=== PATIENT | male | born 1940 | race Caucasian/White ===

== ENCOUNTER 2017-08-07 11:37 | Inpatient (IN) ==
[~2017-08-07 11:37] MED LIST: ALBUTEROL 2.5 MG/3 ML NEB RESP TX SCH; DEXTROSE 50% 25 GM/50 ML VIAL IV PRN; GLUCAGON 1 MG VIAL IM PRN; PSYLLIUM HUSK PO PRN; ZALEPLON 5 MG CAPSULE PO PRN
[2017-08-07] MEDS: MULTIVITAMIN (CENTRUM) TABLET PO SCH (14:35)
[2017-08-07] MEDS: CHLORHEXIDINE 4% SOLN 118 ML BOTTLE TOP SCH ×3 (14:35→21:31)
[2017-08-07] MEDS: hydroCHLOROthiazide 25 MG TABLET PO SCH (14:35)
[2017-08-07] MEDS: FLUTICASONE 50 MCG NASAL SPRAY 16 GM BOTTLE BOTH NARES SCH (14:35)
[2017-08-07] MEDS: TAMSULOSIN 0.4 MG CAPSULE PO SCH (14:35)
[2017-08-07] MEDS: ASPIRIN EC 81 MG TABLET PO SCH (14:35)
[2017-08-07] MEDS: CHLORHEXIDINE 0.12% ORAL RINSE 60 ML BOTTLE SWISH/SPIT SCH ×2 (14:36→21:31)
[2017-08-07] MEDS: MELOXICAM 7.5 MG TABLET PO SCH (14:36)
[2017-08-07] MEDS: CETIRIZINE 10 MG TABLET PO SCH (14:36)
[2017-08-07 14:52] LABS: Basophils % 0.7 % (0.0-0.8); Eosinophils # 0.2 10*3/uL (0.0-0.87); Eosinophils % 3.6 % (0.00-10.9); Hematocrit 47.6 VOL% (42.0-52.0); Hemoglobin 15.9 GM/DL (14.0-18.0); Immature Granulocytes % 0.5 %; Immature Granulocytes Absolute 0.03 #; Lymphocytes # 1.2 10*3/uL (1.4-4.0); Lymphocytes % 20.8 % (21.2-54.2); Mean Corpuscular HGB Conc 33.4 GM/DL (32-36); Mean Corpuscular Hemoglobin 33 PG (27-34); Mean Corpuscular Volume 99.8 FL (87-102); Mean Platelet Volume 10.6 FL (9.6-12.0); Monocytes # 0.5 10*3/uL (0.11-0.8); Neutrophils # 3.8 10*3/uL (1.4-7.4); Neutrophils % 65.4 % (38.7-73.9); Platelet Count 152 T/CUMM (130-400); Red Blood Count 4.77 MC/CUMM (3.8-5.5); White Blood Count 5.9 T/CUMM (4-12)
[2017-08-07 15:06] LABS: Albumin 4.2 G/DL (3.4-5.0); Calcium 9.4 MG/DL (8.5-10.1); Osmolality,Calculated 286.3 MOS/KG (273-304); Potassium 4.4 MMOL/L (3.5-5.1); Total Protein 7.4 G/DL (6.4-8.3)
[2017-08-08] MEDS: SODIUM CHLORIDE 0.9% 1,000 ML IV SCH ×3 (04:56→10:50)
[2017-08-08] MEDS: CHLORHEXIDINE 4% SOLN 118 ML BOTTLE TOP SCH (05:00)
[2017-08-08] MEDS ORDERED: IPRATROPIUM 500 MCG/2.5 ML NEB RESP TX ONE (05:30)
[2017-08-08] MEDS ORDERED: DIAZEPAM 5 MG TABLET PO ONE (05:30)
[2017-08-08] MEDS ORDERED: FAMOTIDINE 20 MG TABLET PO ONE (05:30)
[2017-08-08] MEDS: ALBUTEROL 2.5 MG/3 ML NEB RESP TX SCH ×2 (05:50→10:50)
[2017-08-08] MEDS ORDERED: CEFUROXIME INJ 1,500 MG in SYRINGE 1 EACH IV ONE (06:00)
[2017-08-08 07:47] LABS: ABG Base Excess 2.5 MMOL/L (-2.5-2.5); ABG HCO3 26.6 MMOL/L (20-26); ABG PCO2 35.3 MM HG (35-48); ABG PH 7.471 (7.35-7.45); ABG TCO2 21.8 MMOL/L (23-27); Glucose Heart Surgery 108 MG/DL (74-106); Hematocrit Heart Surgery 44.8 PERCENT (42-52); Hemoglobin Heart Surgery 14.6 G/DL (14.0-18.0); PCO2 Patient Temp Arterial 35.3 MMHG; PH Patient Temp Arterial 7.471; Patient Temperature 37 CELCIUS; Potassium Heart/CVR 3.8 MMOL/L (3.5-5.1); Sodium Heart/CVR 141 MMOL/L (135-145)
[2017-08-08 08:02] LABS: Apearance,Urine CLEAR (Clear); Bilirubin,Urine Negative (Negative); Blood, Urine Negative (Negative); Glucose,Urine (UA) Negative (Negative); Ketones,Urine Negative (Negative); Mucus,Urine Occasional /LPF (Occasional); Nitrite,Urine Negative (Negative); Protein,Urine 30 MG/DL; RBC,Urine 3 /HPF (0-4); Urine Color Yellow (Yellow); Urine Specific Gravity 1.012 (1.001-1.035); Urine Urobilinogen < 2.0 EU/DL (0.2-1.0); WBC,Urine 1 /HPF (0-6)
[2017-08-08] MEDS ORDERED: ALBUMIN 5% 12.5 GM/250 ML VIAL IV ONE ×2 (08:49→14:39)
[2017-08-08] MEDS ORDERED: CALCIUM CHLORIDE 1,000 MG/10 ML SYRINGE IV ONE (08:49)
[2017-08-08] MEDS ORDERED: SODIUM BICARBONATE 50 MEQ/50 ML SYRINGE IV ONE ×2 (08:49→11:15)
[2017-08-08] MEDS ORDERED: EPINEPHrine 1 MG/10 ML SYRINGE ONE (08:49)
[2017-08-08] MEDS ORDERED: ATROPINE 1 MG/10 ML SYRINGE ONE (08:50)
[2017-08-08] MEDS ORDERED: PHENYLEPHRINE DRIP 40 MG/250 ML PREMIX IV ONE (08:50)
[2017-08-08] MEDS ORDERED: NITROPRUSSIDE 50 MG/2 ML VIAL ONE (08:51)
[2017-08-08 09:34] LABS: Hematocrit Heart Surgery 28.8 PERCENT (42-52); Hemoglobin Heart Surgery 9.3 G/DL (14.0-18.0); PH Patient Temp Venous 7.465; PO2 Patient Temp Venous 50.3 MM HG; Potassium Heart/CVR 4.4 MMOL/L (3.5-5.1); VBG Base Excess 1.1 MEQ/L (0-4); VBG HCO3 25.2 MEQ/L (24-28); VBG Oxygen Saturation 90.3 %; VBG PCO2 35.7 MMHG (41-51); VBG PH 7.45; VBG PO2 53.8 MMHG (17-40)
[2017-08-08 10:02] LABS: PCO2 Patient Temp Venous 32.6 MM HG; PH Patient Temp Venous 7.481; PO2 Patient Temp Venous 48.9 MM HG; VBG Base Excess 1.3 MEQ/L (0-4); VBG HCO3 25.4 MEQ/L (24-28); VBG PCO2 32.6 MMHG (41-51); VBG PH 7.481; VBG PO2 48.9 MMHG (17-40)
[2017-08-08 10:33] LABS: Hematocrit Heart Surgery 32.6 PERCENT (42-52); Hemoglobin Heart Surgery 10.6 G/DL (14.0-18.0); PCO2 Patient Temp Venous 31.2 MM HG; PH Patient Temp Venous 7.488; PO2 Patient Temp Venous 49.9 MM HG; Potassium Heart/CVR 3.9 MMOL/L (3.5-5.1); VBG Base Excess 0.9 MEQ/L (0-4); VBG HCO3 25.1 MEQ/L (24-28); VBG Oxygen Saturation 88.8 %; VBG PCO2 31.2 MMHG (41-51); VBG PH 7.488; VBG PO2 49.9 MMHG (17-40)
[2017-08-08] MEDS: ASPIRIN EC 81 MG TABLET PO SCH (10:51)
[2017-08-08] MEDS: TAMSULOSIN 0.4 MG CAPSULE PO SCH (10:51)
[2017-08-08] MEDS: FLUTICASONE 50 MCG NASAL SPRAY 16 GM BOTTLE BOTH NARES SCH (10:51)
[2017-08-08] MEDS: CETIRIZINE 10 MG TABLET PO SCH (10:51)
[2017-08-08] MEDS: hydroCHLOROthiazide 25 MG TABLET PO SCH (10:51)
[2017-08-08] MEDS: MELOXICAM 7.5 MG TABLET PO SCH (10:51)
[2017-08-08] MEDS: CHLORHEXIDINE 0.12% ORAL RINSE 60 ML BOTTLE SWISH/SPIT SCH ×2 (10:51→20:41)
[2017-08-08] MEDS: MULTIVITAMIN (CENTRUM) TABLET PO SCH (10:51)
[2017-08-08 11:01] LABS: ABG HCO3 23.6 MMOL/L (20-26); ABG PCO2 33.1 MM HG (35-48); ABG TCO2 20.1 MMOL/L (23-27); Glucose Heart Surgery 187 MG/DL (74-106); Hematocrit Heart Surgery 34.1 PERCENT (42-52); Hemoglobin Heart Surgery 11.1 G/DL (14.0-18.0); Ionized Calcium Arterial 1.22 MMOL/L (1.21-1.46); PCO2 Patient Temp Arterial 33.1 MMHG; Patient Temperature 37 CELCIUS; Potassium Heart/CVR 3.8 MMOL/L (3.5-5.1); Sodium Heart/CVR 135 MMOL/L (135-145)
[2017-08-08] MEDS ORDERED: THROMBIN TOPICAL (RECOMBINANT) 5,000 UNIT VIAL TOP ONE (11:03)
[2017-08-08] MEDS ORDERED: ALBUMIN 25% 25 GM/100 ML VIAL IV ONE (11:15)
[2017-08-08] MEDS ORDERED: MAGNESIUM SULFATE 1 GM/2 ML VIAL ONE (11:15)
[2017-08-08] MEDS ORDERED: DEXTROSE 5% KCL 20 MEQ 20 MEQ/1,000 ML BAG IV ONE (11:15)
[2017-08-08] MEDS ORDERED: PROTAMINE SULFATE 250 MG/25 ML VIAL IV ONE (11:15)
[2017-08-08] MEDS ORDERED: PHENYLEPHRINE 10 MG/1 ML VIAL IV ONE ×2 (11:16→12:36)
[2017-08-08] MEDS ORDERED: MANNITOL 12.5 GM/50 ML VIAL IV ONE (11:16)
[2017-08-08] MEDS ORDERED: methylPREDNISolone SOD SUC 1,000 MG/8 ML VIAL ONE (11:16)
[2017-08-08] MEDS ORDERED: HEPARIN 10,000 UNIT/10 ML VIAL ONE ×2 (11:16→12:40)
[2017-08-08] MEDS ORDERED: FUROSEMIDE 20 MG/2 ML VIAL ONE (11:16)
[2017-08-08] MEDS ORDERED: PROTAMINE SULFATE 50 MG/5 ML VIAL IV ONE ×3 (11:17→12:25)
[2017-08-08] MEDS ORDERED: POTASSIUM CHLORIDE 20 MEQ/10 ML VIAL ONE (11:17)
[2017-08-08] MEDS ORDERED: DOBUTamine 500 MG/250 ML PREMIX IV ONE ×2 (11:38→12:40)
[2017-08-08] MEDS ORDERED: AMIODARONE INJ 450 MG in DEXTROSE 5% 241 ML IV SCH (12:00)
[2017-08-08] MEDS ORDERED: AMIODARONE 150 MG/3 ML VIAL ONE ×2 (12:08→12:42)
[2017-08-08] MEDS ORDERED: SODIUM CHLORIDE 0.9% 750 ML IV ONE (12:32)
[2017-08-08] MEDS ORDERED: SODIUM CHLORIDE 0.9% 1,000 ML IV ONE (12:32)
[2017-08-08] MEDS ORDERED: LACTATED RINGERS 2,000 ML IV ONE (12:32)
[2017-08-08] MEDS ORDERED: MAGNESIUM SULF RIDER 4 GM in PREMIX 1 EACH IV PRN (12:35)
[2017-08-08] MEDS ORDERED: LACTATED RINGERS 1,000 ML IV ONE ×3 (12:35→15:00)
[2017-08-08] MEDS ORDERED: VECURONIUM 10 MG VIAL IV PRN ×2 (12:35)
[2017-08-08] MEDS ORDERED: ONDANSETRON 4 MG/2 ML VIAL IV PRN (12:35)
[2017-08-08] MEDS ORDERED: MORPHINE 10 MG/1 ML VIAL IV PRN (12:35)
[2017-08-08] MEDS ORDERED: MIDAZOLAM 2 MG/2 ML VIAL IV PRN (12:35)
[2017-08-08] MEDS ORDERED: KETOROLAC 30 MG/1 ML VIAL IV SCH (12:35)
[2017-08-08] MEDS ORDERED: CALCIUM CHLORIDE 1,000 MG/10 ML SYRINGE IV PRN (12:35)
[2017-08-08] MEDS ORDERED: MIDAZOLAM 10 MG/2 ML VIAL IV PRN (12:35)
[2017-08-08] MEDS ORDERED: PHENYLEPHRINE DRIP 40 MG/250 ML PREMIX IV PRN (12:35)
[2017-08-08] MEDS ORDERED: MAGNESIUM SULF RIDER 2 GM in PREMIX 1 EACH IV PRN (12:35)
[2017-08-08] MEDS ORDERED: INSULIN REGULAR 100 UNIT/ML IV PRN (12:35)
[2017-08-08] MEDS ORDERED: INSULIN REGULAR DRIP 100 ML IV SCH (12:35)
[2017-08-08] MEDS ORDERED: ACETAMINOPHEN 650 MG SUPP RECTAL PRN (12:35)
[2017-08-08] MEDS ORDERED: DEXTROSE 50% 25 GM/50 ML VIAL IV PRN ×2 (12:35)
[2017-08-08] MEDS ORDERED: NITROPRUSSIDE 100 MG in DEXTROSE 5% 250 ML IV PRN (12:35)
[2017-08-08] MEDS ORDERED: INSULIN REGULAR 100 UNIT/ML IV ONE (12:35)
[2017-08-08] MEDS ORDERED: POTASSIUM CHLORIDE RIDER 10 MEQ in PREMIX 1 EACH IV PRN (12:35)
[2017-08-08] MEDS ORDERED: LACTATED RINGERS 250 ML IV PRN (12:35)
[2017-08-08] MEDS ORDERED: SODIUM CHLORIDE 0.9% 500 ML IV ONE (12:35)
[2017-08-08] MEDS ORDERED: MIDAZOLAM 10 MG/2 ML VIAL ONE ×2 (12:37)
[2017-08-08] MEDS ORDERED: HEPARIN/NACL 0.9% 2 UNITS/ML 500 ML IV ONE (12:40)
[2017-08-08] MEDS ORDERED: CALCIUM CHLORIDE 1,000 MG/10 ML VIAL IV ONE (12:40)
[2017-08-08] MEDS ORDERED: SEVOFLURANE 1 UNIT/15 MINUTE INH ONE (12:40)
[2017-08-08] MEDS ORDERED: EPINEPHrine 1 MG/ML VIAL ONE (12:41)
[2017-08-08] MEDS ORDERED: ePHEDrine 50 MG/ML AMP ONE (12:41)
[2017-08-08] MEDS ORDERED: SUFentanil 250 MCG/5 ML AMP ONE (12:41)
[2017-08-08] MEDS ORDERED: TRANEXAMIC ACID 1,000 MG/10 ML VIAL IV ONE (12:42)
[2017-08-08 12:44] LABS: ABG Base Excess -3.5 MMOL/L (-2.5-2.5); ABG HCO3 21.5 MMOL/L (20-26); ABG Oxygen Saturation 98.1 % (95-100); ABG PCO2 38.4 MM HG (35-48); ABG PH 7.358 (7.35-7.45); ABG TCO2 19.3 MMOL/L (23-27); Glucose Heart Surgery 183 MG/DL (74-106); Hematocrit Heart Surgery 36.7 PERCENT (42-52); Hemoglobin Heart Surgery 11.9 G/DL (14.0-18.0); Potassium Heart/CVR 3.7 MMOL/L (3.5-5.1)
[2017-08-08 12:49] LABS: Basophils % 0.4 % (0.0-0.8); Eosinophils % 0.2 % (0.00-10.9); Hematocrit 36.3 VOL% (42.0-52.0); Immature Granulocytes % 0.5 %; Immature Granulocytes Absolute 0.05 #; Lymphocytes # 0.7 10*3/uL (1.4-4.0); Lymphocytes % 7.5 % (21.2-54.2); Mean Corpuscular HGB Conc 33.6 GM/DL (32-36); Mean Corpuscular Hemoglobin 33 PG (27-34); Mean Corpuscular Volume 99.5 FL (87-102); Mean Platelet Volume 10.6 FL (9.6-12.0); Monocytes # 0.6 10*3/uL (0.11-0.8); Monocytes % 6.5 % (1.7-12.7); Neutrophils # 8.4 10*3/uL (1.4-7.4); Neutrophils % 84.9 % (38.7-73.9)
[2017-08-08 12:50] LABS: Hemoglobin 12.2 GM/DL (14.0-18.0); Platelet Count 114 T/CUMM (130-400); Red Blood Count 3.65 MC/CUMM (3.8-5.5); White Blood Count 9.9 T/CUMM (4-12)
[2017-08-08 12:53] LABS: INR 1.4; PT Patient Result 14.9 SECS; Partial Thromboplastin Time 33.5 SECS (0-40)
[2017-08-08] MEDS: ALBUMIN 5% 12.5 GM in PREMIX 1 EACH IV PRN ×5 (13:00→21:52)
[2017-08-08 13:22] LABS: Albumin 3.3 G/DL (3.4-5.0); Bilirubin,Total 1.1 MG/DL (0.2-1.0); Osmolality,Calculated 285.4 MOS/KG (273-304); Potassium 3.8 MMOL/L (3.5-5.1); Total Protein 5.7 G/DL (6.4-8.3)
[2017-08-08 13:25] LABS: CKMB % 5.8 %
[2017-08-08 13:26] LABS: Troponin I Only 2.24 NG/ML (0.00-0.045)
[2017-08-08] MEDS: POTASSIUM CHLORIDE RIDER 20 MEQ in PREMIX 1 EACH IV PRN (14:45)
[2017-08-08 15:00] LABS: ABG Base Excess -1.9 MMOL/L (-2.5-2.5); ABG HCO3 21.9 MMOL/L (20-26); ABG Oxygen Saturation 98.6 % (95-100); ABG PH 7.426 (7.35-7.45); ABG TCO2 22.9 MMOL/L (23-27); Glucose Heart Surgery 205 MG/DL (74-106); Hemoglobin Heart Surgery 11.6 G/DL (14.0-18.0)
[2017-08-08] MEDS: DOBUTamine 500 MG/250 ML PREMIX IV SCH (15:10)
[2017-08-08] MEDS: SODIUM CHLORIDE 0.45% 1,000 ML IV SCH ×2 (15:11→15:12)
[2017-08-08 17:05] LABS: Band Neutrophils 4 % (0-10); Lymphocytes 7 % (20-55); Platelet Estimate Adequate; Segmented Neutrophils 86 % (50-85); Total Cells Counted 100
[2017-08-08 17:21] LABS: ABG Base Excess -3.4 MMOL/L (-2.5-2.5); ABG HCO3 21.6 MMOL/L (20-26); ABG Oxygen Saturation 98.5 % (95-100); ABG PCO2 41.6 MM HG (35-48); ABG PH 7.336 (7.35-7.45); ABG TCO2 20.3 MMOL/L (23-27); Glucose Heart Surgery 199 MG/DL (74-106); Hematocrit Heart Surgery 31.3 PERCENT (42-52); Hemoglobin Heart Surgery 10.1 G/DL (14.0-18.0); Potassium Heart/CVR 4.4 MMOL/L (3.5-5.1)
[2017-08-08] MEDS: MORPHINE 2 MG/1 ML SYRINGE IV PRN ×2 (18:26→19:57)
[2017-08-08 19:20] LABS: ABG Base Excess -2.6 MMOL/L (-2.5-2.5); ABG HCO3 22.2 MMOL/L (20-26); ABG Oxygen Saturation 98.9 % (95-100); ABG PCO2 40.8 MM HG (35-48); ABG PH 7.354 (7.35-7.45); ABG TCO2 20.7 MMOL/L (23-27); Glucose Heart Surgery 176 MG/DL (74-106); Hematocrit Heart Surgery 32.2 PERCENT (42-52); Hemoglobin Heart Surgery 10.4 G/DL (14.0-18.0); Potassium Heart/CVR 4.2 MMOL/L (3.5-5.1)
[2017-08-08] MEDS: AMIODARONE INJ 450 MG in DEXTROSE 5% 241 ML IV SCH (20:30)
[2017-08-08] MEDS: CEFUROXIME INJ 1,500 MG in SYRINGE 1 EACH IV SCH (20:37)
[2017-08-08 21:13] LABS: Troponin I Only 15.3 NG/ML (0.00-0.045)
[2017-08-08 21:13] LABS: ABG Base Excess -1.4 MMOL/L (-2.5-2.5); ABG HCO3 23.3 MMOL/L (20-26); ABG Oxygen Saturation 97.3 % (95-100); ABG PH 7.394 (7.35-7.45); ABG PO2 107.6 MM HG (80-95); ABG TCO2 24.5 MMOL/L (23-27); Glucose Heart Surgery 148 MG/DL (74-106); Hemoglobin Heart Surgery 10.1 G/DL (14.0-18.0); Potassium Heart/CVR 4.1 MMOL/L (3.5-5.1)
[2017-08-08 22:11] LABS: ABG Base Excess -0.9 MMOL/L (-2.5-2.5); ABG HCO3 23.7 MMOL/L (20-26); ABG Oxygen Saturation 97.4 % (95-100); ABG PCO2 43.5 MM HG (35-48); ABG PH 7.361 (7.35-7.45); ABG PO2 90.6 MM HG (80-95); ABG TCO2 22.7 MMOL/L (23-27); Glucose Heart Surgery 157 MG/DL (74-106); Hematocrit Heart Surgery 28.7 PERCENT (42-52); Hemoglobin Heart Surgery 9.3 G/DL (14.0-18.0); Potassium Heart/CVR 4.2 MMOL/L (3.5-5.1)
[2017-08-09 00:07] LABS: ABG Base Excess -1.4 MMOL/L (-2.5-2.5); ABG HCO3 23.2 MMOL/L (20-26); ABG Oxygen Saturation 95.5 % (95-100); ABG PCO2 38.7 MM HG (35-48); ABG PH 7.396 (7.35-7.45); ABG PO2 82.5 MM HG (80-95); ABG TCO2 24.4 MMOL/L (23-27); Glucose Heart Surgery 148 MG/DL (74-106); Hemoglobin Heart Surgery 10.7 G/DL (14.0-18.0); Potassium Heart/CVR 4.2 MMOL/L (3.5-5.1)
[2017-08-09] MEDS: POTASSIUM CHLORIDE RIDER 20 MEQ in PREMIX 1 EACH IV PRN ×2 (00:23→05:23)
[2017-08-09] MEDS: MORPHINE 2 MG/1 ML SYRINGE IV PRN ×3 (03:08→22:39)
[2017-08-09 04:10] LABS: ABG Base Excess -0.4 MMOL/L (-2.5-2.5); ABG Oxygen Saturation 95.4 % (95-100); ABG PCO2 39.6 MM HG (35-48); ABG PH 7.396 (7.35-7.45); ABG PO2 73.5 MM HG (80-95); ABG TCO2 22.1 MMOL/L (23-27); Glucose Heart Surgery 120 MG/DL (74-106); Hematocrit Heart Surgery 31.1 PERCENT (42-52); Hemoglobin Heart Surgery 10.1 G/DL (14.0-18.0); Potassium Heart/CVR 4.2 MMOL/L (3.5-5.1)
[2017-08-09 04:37] LABS: Basophils % 0.1 % (0.0-0.8); Hematocrit 29.3 VOL% (42.0-52.0); Hemoglobin 9.8 GM/DL (14.0-18.0); Immature Granulocytes % 0.4 %; Immature Granulocytes Absolute 0.05 #; Lymphocytes # 0.6 10*3/uL (1.4-4.0); Lymphocytes % 5.1 % (21.2-54.2); Mean Corpuscular HGB Conc 33.4 GM/DL (32-36); Mean Corpuscular Hemoglobin 33 PG (27-34); Mean Corpuscular Volume 98.7 FL (87-102); Monocytes # 0.7 10*3/uL (0.11-0.8); Neutrophils # 10.3 10*3/uL (1.4-7.4); Neutrophils % 88.4 % (38.7-73.9); Platelet Count 83 T/CUMM (130-400); Red Blood Count 2.97 MC/CUMM (3.8-5.5); Red Cell Distribution Width 13.2 % (9.3-17.3); White Blood Count 11.7 T/CUMM (4-12)
[2017-08-09 04:41] LABS: Albumin 3.9 G/DL (3.4-5.0); Bilirubin,Direct 0.25 MG/DL (0.0-0.20); Bilirubin,Total 0.8 MG/DL (0.2-1.0); Calcium 8.5 MG/DL (8.5-10.1); Osmolality,Calculated 278.7 MOS/KG (273-304); Potassium 4.2 MMOL/L (3.5-5.1); Total Protein 5.8 G/DL (6.4-8.3)
[2017-08-09] MEDS: ALBUMIN 5% 12.5 GM in PREMIX 1 EACH IV PRN (05:08)
[2017-08-09 05:25] LABS: Band Neutrophils 7 % (0-10); Giant Platelets Few; Hypochromasia 1+; Lymphocytes 5 % (20-55); Platelet Estimate Decreased; Segmented Neutrophils 79 % (50-85); Total Cells Counted 100
[2017-08-09] MEDS ORDERED: FUROSEMIDE 40 MG/4 ML VIAL IV ONE ×2 (05:30→08:00)
[2017-08-09 05:31] LABS: CKMB % 7.7 %
[2017-08-09 05:41] LABS: Troponin I Only 28.3 NG/ML (0.00-0.045)
[2017-08-09 06:06] LABS: ABG Base Excess 0.8 MMOL/L (-2.5-2.5); ABG HCO3 25.1 MMOL/L (20-26); ABG Oxygen Saturation 94.4 % (95-100); ABG PCO2 38.9 MM HG (35-48); ABG PH 7.428 (7.35-7.45); ABG PO2 75.3 MM HG (80-95); ABG TCO2 26.3 MMOL/L (23-27); Glucose Heart Surgery 118 MG/DL (74-106); Hemoglobin Heart Surgery 11.1 G/DL (14.0-18.0); Potassium Heart/CVR 4.8 MMOL/L (3.5-5.1)
[2017-08-09] MEDS ORDERED: oxyCODONE/ACETAMINOPHEN 5-325 MG TABLET PO PRN (06:24)
[2017-08-09] MEDS: CEFUROXIME INJ 1,500 MG in SYRINGE 1 EACH IV SCH ×2 (08:15→20:26)
[2017-08-09] MEDS: CHLORHEXIDINE 0.12% ORAL RINSE 60 ML BOTTLE SWISH/SPIT SCH ×2 (10:41→20:25)
[2017-08-09 13:29] LABS: CKMB % 6.3 %
[2017-08-09 13:33] LABS: Troponin I Only 35.3 NG/ML (0.00-0.045)
[2017-08-09] MEDS: AMIODARONE 200 MG TABLET PO SCH (14:20)
[2017-08-09] MEDS: INSULIN REGULAR 100 UNIT/ML SUBCUT SCH ×3 (14:37→20:25)
[2017-08-09] MEDS: AMIODARONE INJ 450 MG in DEXTROSE 5% 241 ML IV SCH (15:14)
[2017-08-09] MEDS: DOBUTamine 500 MG/250 ML PREMIX IV SCH (15:14)
[2017-08-09] MEDS: SODIUM CHLORIDE 0.45% 1,000 ML IV SCH ×2 (15:18)
[2017-08-09] MEDS ORDERED: ALUMINUM/MAGNES/SIMETH MAX STR 30 ML UDCUP PO PRN (18:41)
[2017-08-09] MEDS: PANTOPRAZOLE 40 MG TABLET PO SCH (20:24)
[2017-08-09] MEDS: MONTELUKAST 10 MG TABLET PO SCH (20:24)
[2017-08-10] MEDS: INSULIN REGULAR 100 UNIT/ML SUBCUT SCH ×3 (00:38→07:43)
[2017-08-10 04:16] LABS: Basophils % 0.1 % (0.0-0.8); Hematocrit 28.7 VOL% (42.0-52.0); Hemoglobin 9.6 GM/DL (14.0-18.0); Immature Granulocytes % 0.8 %; Immature Granulocytes Absolute 0.13 #; Lymphocytes # 0.5 10*3/uL (1.4-4.0); Lymphocytes % 3.1 % (21.2-54.2); Mean Corpuscular HGB Conc 33.4 GM/DL (32-36); Mean Corpuscular Hemoglobin 34 PG (27-34); Mean Corpuscular Volume 100.3 FL (87-102); Mean Platelet Volume 11.6 FL (9.6-12.0); Monocytes # 1.2 10*3/uL (0.11-0.8); Monocytes % 7.2 % (1.7-12.7); Neutrophils # 15.2 10*3/uL (1.4-7.4); Neutrophils % 88.8 % (38.7-73.9); Platelet Count 75 T/CUMM (130-400); Red Blood Count 2.86 MC/CUMM (3.8-5.5); Red Cell Distribution Width 13.5 % (9.3-17.3); White Blood Count 17.2 T/CUMM (4-12)
[2017-08-10 04:37] LABS: Albumin 3.7 G/DL (3.4-5.0); Bilirubin,Direct 0.19 MG/DL (0.0-0.20); Bilirubin,Total 0.7 MG/DL (0.2-1.0); Osmolality,Calculated 292.3 MOS/KG (273-304); Potassium 4.2 MMOL/L (3.5-5.1); Total Protein 5.8 G/DL (6.4-8.3)
[2017-08-10 04:49] LABS: CKMB % 2.6 %
[2017-08-10] MEDS: AMIODARONE INJ 450 MG in DEXTROSE 5% 241 ML IV SCH (04:49)
[2017-08-10 04:59] LABS: Troponin I Only 30.3 NG/ML (0.00-0.045)
[2017-08-10 06:08] LABS: Band Neutrophils 5 % (0-10); Lymphocytes 2 % (20-55); Segmented Neutrophils 87 % (50-85); Total Cells Counted 100
[2017-08-10 06:09] LABS: Hypochromasia 1+; Platelet Estimate Decreased
[2017-08-10] MEDS: AMIODARONE 200 MG TABLET PO SCH ×2 (08:36→21:31)
[2017-08-10] MEDS: PANTOPRAZOLE 40 MG TABLET PO SCH ×2 (08:36→12:16)
[2017-08-10] MEDS: CHLORHEXIDINE 0.12% ORAL RINSE 60 ML BOTTLE SWISH/SPIT SCH ×3 (08:39→21:31)
[2017-08-10] MEDS: MULTIVITAMIN (CENTRUM) TABLET PO SCH (10:58)
[2017-08-10] MEDS: hydroCHLOROthiazide 25 MG TABLET PO SCH (10:58)
[2017-08-10] MEDS: ASPIRIN EC 81 MG TABLET PO SCH (10:58)
[2017-08-10] MEDS: CETIRIZINE 10 MG TABLET PO SCH (10:58)
[2017-08-10] MEDS: FLUTICASONE 50 MCG NASAL SPRAY 16 GM BOTTLE BOTH NARES SCH (10:59)
[2017-08-10] MEDS: TAMSULOSIN 0.4 MG CAPSULE PO SCH (10:59)
[2017-08-10] MEDS ORDERED: ALUMINUM/MAGNES/SIMETH MAX STR 30 ML UDCUP PO PRN (11:33)
[2017-08-10] MEDS ORDERED: DEXTROSE 50% 25 GM/50 ML VIAL IV PRN ×2 (11:33)
[2017-08-10] MEDS ORDERED: GLUCAGON 1 MG VIAL IM PRN ×2 (11:33)
[2017-08-10] MEDS ORDERED: ZALEPLON 5 MG CAPSULE PO PRN (11:33)
[2017-08-10] MEDS ORDERED: POTASSIUM CHLORIDE 20 MEQ TABLET PO PRN (11:33)
[2017-08-10] MEDS ORDERED: MAGNESIUM SULF RIDER 4 GM in PREMIX 1 EACH IV PRN (11:33)
[2017-08-10] MEDS ORDERED: ONDANSETRON 4 MG/2 ML VIAL IV PRN (11:33)
[2017-08-10] MEDS ORDERED: oxyCODONE/ACETAMINOPHEN 5-325 MG TABLET PO PRN (11:33)
[2017-08-10] MEDS ORDERED: MAGNESIUM SULF RIDER 2 GM in PREMIX 1 EACH IV PRN (11:33)
[2017-08-10] MEDS ORDERED: SODIUM CHLOR 0.45% KCL 20 MEQ 20 MEQ/1,000 ML BAG IV SCH (11:33)
[2017-08-10] MEDS: DOCUSATE SODIUM 100 MG CAPSULE PO SCH (12:15)
[2017-08-10] MEDS: FERROUS SULFATE 325 MG TABLET PO SCH (12:15)
[2017-08-10] MEDS: PHENYLEPHRINE PO SCH (15:54)
[2017-08-10] MEDS: CHLORPHENIRAMINE PO SCH (15:54)
[2017-08-10] MEDS: ATORVASTATIN 40 MG TABLET PO SCH (21:31)
[2017-08-10] MEDS: MONTELUKAST 10 MG TABLET PO SCH (21:31)
[2017-08-11] MEDS ORDERED: FUROSEMIDE 40 MG/4 ML VIAL IV ONE (06:00)
[2017-08-11 06:06] LABS: Basophils % 0.1 % (0.0-0.8); Hematocrit 29.5 VOL% (42.0-52.0); Hemoglobin 9.9 GM/DL (14.0-18.0); Immature Granulocytes % 0.8 %; Immature Granulocytes Absolute 0.13 #; Lymphocytes # 0.8 10*3/uL (1.4-4.0); Lymphocytes % 4.8 % (21.2-54.2); Mean Corpuscular HGB Conc 33.6 GM/DL (32-36); Mean Corpuscular Hemoglobin 33 PG (27-34); Mean Corpuscular Volume 99.3 FL (87-102); Mean Platelet Volume 11.8 FL (9.6-12.0); Monocytes # 1.6 10*3/uL (0.11-0.8); Monocytes % 9.7 % (1.7-12.7); Neutrophils # 14.2 10*3/uL (1.4-7.4); Neutrophils % 84.6 % (38.7-73.9); Platelet Count 90 T/CUMM (130-400); Red Blood Count 2.97 MC/CUMM (3.8-5.5); Red Cell Distribution Width 13.1 % (9.3-17.3); White Blood Count 16.8 T/CUMM (4-12)
[2017-08-11 06:26] LABS: Albumin 3.7 G/DL (3.4-5.0); Bilirubin,Direct 0.23 MG/DL (0.0-0.20); Bilirubin,Indirect 0.9 MG/DL (0.0-1.0); Bilirubin,Total 1.1 MG/DL (0.2-1.0); CKMB % 1.2 %; Calcium 8.3 MG/DL (8.5-10.1); Osmolality,Calculated 292.3 MOS/KG (273-304); Potassium 4.3 MMOL/L (3.5-5.1); Total Protein 5.9 G/DL (6.4-8.3)
[2017-08-11 06:27] LABS: Troponin I Only 16.8 NG/ML (0.00-0.045)
[2017-08-11 06:55] LABS: Band Neutrophils 4 % (0-10); Lymphocytes 20 % (20-55); Platelet Estimate Decreased; Segmented Neutrophils 73 % (50-85); Total Cells Counted 100
[2017-08-11 06:56] LABS: Macrocytosis 3+
[2017-08-11] MEDS: FERROUS SULFATE 325 MG TABLET PO SCH (09:15)
[2017-08-11] MEDS: MULTIVITAMIN (CENTRUM) TABLET PO SCH (09:15)
[2017-08-11] MEDS: DOCUSATE SODIUM 100 MG CAPSULE PO SCH (09:16)
[2017-08-11] MEDS: TAMSULOSIN 0.4 MG CAPSULE PO SCH (09:16)
[2017-08-11] MEDS: CETIRIZINE 10 MG TABLET PO SCH (09:16)
[2017-08-11] MEDS: PANTOPRAZOLE 40 MG TABLET PO SCH (09:16)
[2017-08-11] MEDS: ASPIRIN EC 81 MG TABLET PO SCH (09:16)
[2017-08-11] MEDS: AMIODARONE 200 MG TABLET PO SCH ×2 (09:17→21:12)
[2017-08-11] MEDS: CHLORHEXIDINE 0.12% ORAL RINSE 60 ML BOTTLE SWISH/SPIT SCH ×2 (09:20→21:12)
[2017-08-11] MEDS: FLUTICASONE 50 MCG NASAL SPRAY 16 GM BOTTLE BOTH NARES SCH (09:20)
[2017-08-11] MEDS: hydroCHLOROthiazide 25 MG TABLET PO SCH (09:21)
[2017-08-11] MEDS: CHLORPHENIRAMINE PO SCH (11:52)
[2017-08-11] MEDS: PHENYLEPHRINE PO SCH (11:52)
[2017-08-11] MEDS ORDERED: FUROSEMIDE 40 MG TABLET PO SCH (16:00)
[2017-08-11] MEDS: MONTELUKAST 10 MG TABLET PO SCH (21:12)
[2017-08-11] MEDS: ATORVASTATIN 40 MG TABLET PO SCH (21:12)
[2017-08-12 06:09] LABS: Basophils % 0.1 % (0.0-0.8); Eosinophils % 0.1 % (0.00-10.9); Hematocrit 32.2 VOL% (42.0-52.0); Hemoglobin 10.7 GM/DL (14.0-18.0); Immature Granulocytes % 0.9 %; Immature Granulocytes Absolute 0.12 #; Mean Corpuscular HGB Conc 33.2 GM/DL (32-36); Mean Corpuscular Hemoglobin 33 PG (27-34); Mean Corpuscular Volume 99.7 FL (87-102); Mean Platelet Volume 11.5 FL (9.6-12.0); Monocytes # 1.5 10*3/uL (0.11-0.8); Monocytes % 10.8 % (1.7-12.7); Neutrophils # 10.3 10*3/uL (1.4-7.4); Neutrophils % 74.1 % (38.7-73.9); Platelet Count 124 T/CUMM (130-400); Red Blood Count 3.23 MC/CUMM (3.8-5.5); White Blood Count 13.9 T/CUMM (4-12)
[2017-08-12 06:59] LABS: Giant Platelets Few; Hypochromasia 1+; Lymphocytes 16 % (20-55); Platelet Estimate Normal; Segmented Neutrophils 74 % (50-85); Total Cells Counted 100
[2017-08-12 07:06] LABS: Potassium 4.1 MMOL/L (3.5-5.1)
[2017-08-12 07:09] LABS: Albumin 3.5 G/DL (3.4-5.0)
[2017-08-12 07:16] LABS: Osmolality,Calculated 288.5 MOS/KG (273-304)
[2017-08-12 07:20] LABS: Bilirubin,Direct 0.27 MG/DL (0.0-0.20); Bilirubin,Indirect 0.7 MG/DL (0.0-1.0)
[2017-08-12 07:21] LABS: Total Protein 6.2 G/DL (6.4-8.3)
[2017-08-12 07:41] LABS: CKMB % 1.1 %; Troponin I Only 15.9 NG/ML (0.00-0.045)
[2017-08-12] MEDS: AMIODARONE 200 MG TABLET PO SCH (09:10)
[2017-08-12] MEDS: PANTOPRAZOLE 40 MG TABLET PO SCH (09:10)
[2017-08-12] MEDS: CHLORPHENIRAMINE PO SCH (09:10)
[2017-08-12] MEDS: ASPIRIN EC 81 MG TABLET PO SCH (09:10)
[2017-08-12] MEDS: TAMSULOSIN 0.4 MG CAPSULE PO SCH (09:10)
[2017-08-12] MEDS: MULTIVITAMIN (CENTRUM) TABLET PO SCH (09:10)
[2017-08-12] MEDS: PHENYLEPHRINE PO SCH (09:10)
[2017-08-12] MEDS: DOCUSATE SODIUM 100 MG CAPSULE PO SCH (09:10)
[2017-08-12] MEDS: FERROUS SULFATE 325 MG TABLET PO SCH (09:10)
[2017-08-12] MEDS: CETIRIZINE 10 MG TABLET PO SCH (09:10)
[2017-08-12] MEDS: hydroCHLOROthiazide 25 MG TABLET PO SCH (09:10)
[2017-08-12] MEDS: CHLORHEXIDINE 0.12% ORAL RINSE 60 ML BOTTLE SWISH/SPIT SCH ×2 (09:11→21:41)
[2017-08-12] MEDS: FLUTICASONE 50 MCG NASAL SPRAY 16 GM BOTTLE BOTH NARES SCH (09:11)
[2017-08-12] MEDS ORDERED: FUROSEMIDE 40 MG/4 ML VIAL IV ONE (09:54)
[2017-08-12] MEDS: METOPROLOL SUCCINATE XL 25 MG TABLET PO SCH (10:49)
[2017-08-12] MEDS: ALBUTEROL/IPRATROPIUM 3 ML NEB RESP TX SCH ×3 (11:04→21:06)
[2017-08-12 15:48] LABS: ABG Base Excess 4.3 MMOL/L (-2.5-2.5); ABG HCO3 28.1 MMOL/L (20-26); ABG Oxygen Saturation 91.3 % (95-100); ABG PCO2 38.6 MM HG (35-48); ABG TCO2 25.1 MMOL/L (23-27); Allen Test Positive
[2017-08-12] MEDS: PIPERACILLIN/TAZOBACTAM 3,375 MG in SODIUM CHLORIDE 0.9% 100 ML IV SCH (17:45)
[2017-08-12] MEDS: methylPREDNISolone SOD SUC 40 MG/1 ML VIAL IV SCH (17:45)
[2017-08-12] MEDS: ATORVASTATIN 40 MG TABLET PO SCH (21:41)
[2017-08-12] MEDS: MONTELUKAST 10 MG TABLET PO SCH (21:41)
[2017-08-13] MEDS: methylPREDNISolone SOD SUC 40 MG/1 ML VIAL IV SCH ×2 (00:50→09:02)
[2017-08-13] MEDS: PIPERACILLIN/TAZOBACTAM 3,375 MG in SODIUM CHLORIDE 0.9% 100 ML IV SCH ×3 (00:51→17:05)
[2017-08-13 04:51] LABS: Basophils % 0.1 % (0.0-0.8); Hemoglobin 11.1 GM/DL (14.0-18.0); Immature Granulocytes % 0.9 %; Immature Granulocytes Absolute 0.08 #; Lymphocytes # 0.6 10*3/uL (1.4-4.0); Lymphocytes % 6.5 % (21.2-54.2); Mean Corpuscular HGB Conc 34.7 GM/DL (32-36); Mean Corpuscular Hemoglobin 34 PG (27-34); Mean Corpuscular Volume 96.7 FL (87-102); Mean Platelet Volume 10.8 FL (9.6-12.0); Monocytes # 0.1 10*3/uL (0.11-0.8); Monocytes % 1.3 % (1.7-12.7); Neutrophils # 8.1 10*3/uL (1.4-7.4); Neutrophils % 91.2 % (38.7-73.9); Platelet Count 173 T/CUMM (130-400); Red Blood Count 3.31 MC/CUMM (3.8-5.5); Red Cell Distribution Width 12.8 % (9.3-17.3); White Blood Count 8.9 T/CUMM (4-12)
[2017-08-13 05:10] LABS: Calcium 8.6 MG/DL (8.5-10.1); Osmolality,Calculated 300.4 MOS/KG (273-304); Potassium 4.4 MMOL/L (3.5-5.1)
[2017-08-13 05:29] LABS: Lymphocytes 9 % (20-55); Segmented Neutrophils 90 % (50-85); Total Cells Counted 100
[2017-08-13 05:30] LABS: Platelet Estimate Adequate
[2017-08-13 05:34] LABS: Polychromasia Few
[2017-08-13 05:35] LABS: Hypochromasia 1+
[2017-08-13] MEDS: ALBUTEROL/IPRATROPIUM 3 ML NEB RESP TX SCH ×4 (07:45→19:12)
[2017-08-13] MEDS: MULTIVITAMIN (CENTRUM) TABLET PO SCH (09:06)
[2017-08-13] MEDS: METOPROLOL SUCCINATE XL 25 MG TABLET PO SCH (09:06)
[2017-08-13] MEDS: CHLORPHENIRAMINE PO SCH (09:06)
[2017-08-13] MEDS: DOCUSATE SODIUM 100 MG CAPSULE PO SCH (09:06)
[2017-08-13] MEDS: CHLORHEXIDINE 0.12% ORAL RINSE 60 ML BOTTLE SWISH/SPIT SCH ×2 (09:06→22:04)
[2017-08-13] MEDS: CETIRIZINE 10 MG TABLET PO SCH (09:06)
[2017-08-13] MEDS: PHENYLEPHRINE PO SCH (09:06)
[2017-08-13] MEDS: TAMSULOSIN 0.4 MG CAPSULE PO SCH (09:06)
[2017-08-13] MEDS: ASPIRIN EC 81 MG TABLET PO SCH (09:06)
[2017-08-13] MEDS: FERROUS SULFATE 325 MG TABLET PO SCH (09:06)
[2017-08-13] MEDS: PANTOPRAZOLE 40 MG TABLET PO SCH (09:06)
[2017-08-13] MEDS: FLUTICASONE 50 MCG NASAL SPRAY 16 GM BOTTLE BOTH NARES SCH (09:07)
[2017-08-13] MEDS: methylPREDNISolone SOD SUC 125 MG/2 ML VIAL IV SCH ×2 (10:04→22:03)
[2017-08-13] MEDS: ACETAMINOPHEN 325 MG TABLET PO PRN ×2 (11:44→22:35)
[2017-08-13] MEDS: MAGNESIUM HYDROXIDE SUSP 30 ML UDCUP PO PRN (13:03)
[2017-08-13] MEDS: ATORVASTATIN 40 MG TABLET PO SCH (22:04)
[2017-08-13] MEDS: MONTELUKAST 10 MG TABLET PO SCH (22:04)
[2017-08-14] MEDS: PIPERACILLIN/TAZOBACTAM 3,375 MG in SODIUM CHLORIDE 0.9% 100 ML IV SCH ×3 (01:19→18:12)
[2017-08-14 05:00] LABS: Basophils % 0.1 % (0.0-0.8); Hematocrit 29.8 VOL% (42.0-52.0); Hemoglobin 10.1 GM/DL (14.0-18.0); Immature Granulocytes % 1.3 %; Immature Granulocytes Absolute 0.19 #; Lymphocytes # 0.9 10*3/uL (1.4-4.0); Lymphocytes % 6.1 % (21.2-54.2); Mean Corpuscular HGB Conc 33.9 GM/DL (32-36); Mean Corpuscular Hemoglobin 34 PG (27-34); Monocytes # 0.7 10*3/uL (0.11-0.8); Monocytes % 5.1 % (1.7-12.7); NRBC # 0.02 10*3/uL; Neutrophils # 12.6 10*3/uL (1.4-7.4); Neutrophils % 87.4 % (38.7-73.9); Platelet Count 203 T/CUMM (130-400); Red Blood Count 3.01 MC/CUMM (3.8-5.5); Red Cell Distribution Width 12.7 % (9.3-17.3); White Blood Count 14.4 T/CUMM (4-12)
[2017-08-14 05:27] LABS: Macrocytosis Slight
[2017-08-14 05:29] LABS: Platelet Estimate Normal
[2017-08-14 05:54] LABS: Alanine Aminotransferase 46 U/L (16-61); Albumin 3.2 G/DL (3.4-5.0); Alkaline Phosphatase 51 U/L (45-117); Aspartate Amino Transferase 33 U/L (0-37); Bilirubin,Indirect 0.8 MG/DL (0.0-1.0); Blood Urea Nitrogen 78 MG/DL (7-18); Calcium 8.8 MG/DL (8.5-10.1); Glucose 155 MG/DL (74-106); Osmolality,Calculated 304.4 MOS/KG (273-304); Potassium 3.8 MMOL/L (3.5-5.1); Sodium 140 MMOL/L (136-145); Total Protein 5.9 G/DL (6.4-8.3)
[2017-08-14] MEDS: ALBUTEROL/IPRATROPIUM 3 ML NEB RESP TX SCH ×4 (07:05→20:51)
[2017-08-14] MEDS: CETIRIZINE 10 MG TABLET PO SCH (08:47)
[2017-08-14] MEDS: PANTOPRAZOLE 40 MG TABLET PO SCH (08:47)
[2017-08-14] MEDS: DOCUSATE SODIUM 100 MG CAPSULE PO SCH (08:47)
[2017-08-14] MEDS: MULTIVITAMIN (CENTRUM) TABLET PO SCH (08:48)
[2017-08-14] MEDS: FERROUS SULFATE 325 MG TABLET PO SCH (08:48)
[2017-08-14] MEDS: METOPROLOL SUCCINATE XL 25 MG TABLET PO SCH (08:48)
[2017-08-14] MEDS: ASPIRIN EC 81 MG TABLET PO SCH (08:48)
[2017-08-14] MEDS: TAMSULOSIN 0.4 MG CAPSULE PO SCH (08:49)
[2017-08-14] MEDS: FLUTICASONE 50 MCG NASAL SPRAY 16 GM BOTTLE BOTH NARES SCH (08:49)
[2017-08-14] MEDS: CHLORHEXIDINE 0.12% ORAL RINSE 60 ML BOTTLE SWISH/SPIT SCH ×2 (08:49→21:59)
[2017-08-14] MEDS ORDERED: SODIUM PHOSPHATE ENEMA 133 ML BOTTLE RECTAL PRN (08:57)
[2017-08-14] MEDS ORDERED: AMIODARONE 200 MG TABLET PO SCH (09:00)
[2017-08-14] MEDS: methylPREDNISolone SOD SUC 125 MG/2 ML VIAL IV SCH ×2 (09:49→21:58)
[2017-08-14] MEDS: PHENYLEPHRINE PO SCH (09:50)
[2017-08-14] MEDS: CHLORPHENIRAMINE PO SCH (09:50)
[2017-08-14] MEDS: DORNASE ALFA 2.5 MG/2.5 ML VIAL RESP TX SCH (20:51)
[2017-08-14] MEDS ORDERED: POTASSIUM IODIDE ORAL SOLN 1,000 MG/ML BOTTLE PO SCH (21:00)
[2017-08-14] MEDS: ATORVASTATIN 40 MG TABLET PO SCH (21:59)
[2017-08-14] MEDS: MONTELUKAST 10 MG TABLET PO SCH (21:59)
[2017-08-14] MEDS: ACETAMINOPHEN 325 MG TABLET PO PRN (22:00)
[2017-08-15] MEDS: PIPERACILLIN/TAZOBACTAM 3,375 MG in SODIUM CHLORIDE 0.9% 100 ML IV SCH ×3 (04:00→16:44)
[2017-08-15 07:02] LABS: Basophils % 0.2 % (0.0-0.8); Hematocrit 30.5 VOL% (42.0-52.0); Hemoglobin 10.1 GM/DL (14.0-18.0); Immature Granulocytes Absolute 0.55 #; Lymphocytes # 0.8 10*3/uL (1.4-4.0); Lymphocytes % 4.4 % (21.2-54.2); Mean Corpuscular HGB Conc 33.1 GM/DL (32-36); Mean Corpuscular Hemoglobin 33 PG (27-34); Monocytes # 0.7 10*3/uL (0.11-0.8); Monocytes % 3.8 % (1.7-12.7); Neutrophils # 16.4 10*3/uL (1.4-7.4); Neutrophils % 88.6 % (38.7-73.9); Platelet Count 235 T/CUMM (130-400); Red Blood Count 3.05 MC/CUMM (3.8-5.5); Red Cell Distribution Width 13.1 % (9.3-17.3); White Blood Count 18.5 T/CUMM (4-12)
[2017-08-15 07:21] LABS: Giant Platelets Few; Hypochromasia 1+; Lymphocytes 7 % (20-55); Ovalocytes Slight; Platelet Estimate Adequate; Segmented Neutrophils 90 % (50-85); Total Cells Counted 100
[2017-08-15 07:22] LABS: Macrocytosis Slight
[2017-08-15 07:47] LABS: Alanine Aminotransferase 53 U/L (16-61); Albumin 3.4 G/DL (3.4-5.0); Alkaline Phosphatase 51 U/L (45-117); Aspartate Amino Transferase 29 U/L (0-37); Bilirubin,Indirect 0.4 MG/DL (0.0-1.0); Blood Urea Nitrogen 82 MG/DL (7-18); Calcium 8.5 MG/DL (8.5-10.1); Glucose 144 MG/DL (74-106); Potassium 3.9 MMOL/L (3.5-5.1); Sodium 143 MMOL/L (136-145)
[2017-08-15] MEDS: ALBUTEROL/IPRATROPIUM 3 ML NEB RESP TX SCH ×4 (08:28→19:03)
[2017-08-15] MEDS: DORNASE ALFA 2.5 MG/2.5 ML VIAL RESP TX SCH ×2 (08:28→19:04)
[2017-08-15] MEDS: MULTIVITAMIN (CENTRUM) TABLET PO SCH (08:52)
[2017-08-15] MEDS: TAMSULOSIN 0.4 MG CAPSULE PO SCH (08:52)
[2017-08-15] MEDS: FERROUS SULFATE 325 MG TABLET PO SCH (08:52)
[2017-08-15] MEDS: CETIRIZINE 10 MG TABLET PO SCH (08:52)
[2017-08-15] MEDS: PANTOPRAZOLE 40 MG TABLET PO SCH (08:52)
[2017-08-15] MEDS: ASPIRIN EC 81 MG TABLET PO SCH (08:52)
[2017-08-15] MEDS: DOCUSATE SODIUM 100 MG CAPSULE PO SCH (08:52)
[2017-08-15] MEDS: METOPROLOL SUCCINATE XL 25 MG TABLET PO SCH (08:52)
[2017-08-15] MEDS: methylPREDNISolone SOD SUC 125 MG/2 ML VIAL IV SCH (09:07)
[2017-08-15] MEDS: FLUTICASONE 50 MCG NASAL SPRAY 16 GM BOTTLE BOTH NARES SCH (09:08)
[2017-08-15] MEDS: CHLORHEXIDINE 0.12% ORAL RINSE 60 ML BOTTLE SWISH/SPIT SCH ×2 (09:08→22:56)
[2017-08-15] MEDS: PHENYLEPHRINE PO SCH (09:09)
[2017-08-15] MEDS: CHLORPHENIRAMINE PO SCH (09:09)
[2017-08-15] MEDS: methylPREDNISolone SOD SUC 40 MG/1 ML VIAL IV SCH ×2 (09:56→20:30)
[2017-08-15] MEDS ORDERED: LACTULOSE 20 GM/30 ML UDCUP PO PRN (09:56)
[2017-08-15] MEDS: ACETAMINOPHEN 325 MG TABLET PO PRN (20:02)
[2017-08-15] MEDS: ATORVASTATIN 40 MG TABLET PO SCH (20:02)
[2017-08-15] MEDS: MONTELUKAST 10 MG TABLET PO SCH (20:02)
[2017-08-16] MEDS: PIPERACILLIN/TAZOBACTAM 3,375 MG in SODIUM CHLORIDE 0.9% 100 ML IV SCH ×3 (01:55→17:38)
[2017-08-16 05:53] LABS: Basophils % 0.2 % (0.0-0.8); Hematocrit 28.3 VOL% (42.0-52.0); Hemoglobin 9.4 GM/DL (14.0-18.0); Immature Granulocytes % 6.9 %; Immature Granulocytes Absolute 1.11 #; Lymphocytes # 0.9 10*3/uL (1.4-4.0); Lymphocytes % 5.8 % (21.2-54.2); Mean Corpuscular HGB Conc 33.2 GM/DL (32-36); Mean Corpuscular Hemoglobin 33 PG (27-34); Mean Corpuscular Volume 100.4 FL (87-102); Mean Platelet Volume 10.5 FL (9.6-12.0); Monocytes % 6.5 % (1.7-12.7); Neutrophils % 80.6 % (38.7-73.9); Platelet Count 230 T/CUMM (130-400); Red Blood Count 2.82 MC/CUMM (3.8-5.5); Red Cell Distribution Width 13.2 % (9.3-17.3); White Blood Count 16.1 T/CUMM (4-12)
[2017-08-16 06:24] LABS: Band Neutrophils 1 % (0-10); Lymphocytes 6 % (20-55); Segmented Neutrophils 87 % (50-85); Total Cells Counted 100
[2017-08-16 06:25] LABS: Giant Platelets Few; Hypochromasia 1+; Macrocytosis Slight; Ovalocytes Slight; Platelet Estimate Adequate
[2017-08-16 06:32] LABS: Calcium 8.1 MG/DL (8.5-10.1); Osmolality,Calculated 308.7 MOS/KG (273-304)
[2017-08-16] MEDS: ALBUTEROL/IPRATROPIUM 3 ML NEB RESP TX SCH ×4 (07:00→18:54)
[2017-08-16] MEDS: DORNASE ALFA 2.5 MG/2.5 ML VIAL RESP TX SCH ×2 (07:08→19:04)
[2017-08-16] MEDS: METOPROLOL SUCCINATE XL 25 MG TABLET PO SCH (09:40)
[2017-08-16] MEDS: MULTIVITAMIN (CENTRUM) TABLET PO SCH (09:40)
[2017-08-16] MEDS: MAGNESIUM HYDROXIDE SUSP 30 ML UDCUP PO PRN (09:41)
[2017-08-16] MEDS: methylPREDNISolone SOD SUC 40 MG/1 ML VIAL IV SCH ×2 (09:41→20:32)
[2017-08-16] MEDS: FLUTICASONE 50 MCG NASAL SPRAY 16 GM BOTTLE BOTH NARES SCH (09:42)
[2017-08-16] MEDS: CHLORHEXIDINE 0.12% ORAL RINSE 60 ML BOTTLE SWISH/SPIT SCH ×2 (09:42→20:55)
[2017-08-16] MEDS: TAMSULOSIN 0.4 MG CAPSULE PO SCH (09:42)
[2017-08-16] MEDS: ASPIRIN EC 81 MG TABLET PO SCH (09:42)
[2017-08-16] MEDS: CETIRIZINE 10 MG TABLET PO SCH (09:42)
[2017-08-16] MEDS: PANTOPRAZOLE 40 MG TABLET PO SCH (09:42)
[2017-08-16] MEDS: CHLORPHENIRAMINE PO SCH (09:42)
[2017-08-16] MEDS: PHENYLEPHRINE PO SCH (09:42)
[2017-08-16] MEDS: DOCUSATE SODIUM 100 MG CAPSULE PO SCH (09:42)
[2017-08-16] MEDS: FERROUS SULFATE 325 MG TABLET PO SCH (09:42)
[2017-08-16] MEDS: ATORVASTATIN 40 MG TABLET PO SCH (20:32)
[2017-08-16] MEDS: MONTELUKAST 10 MG TABLET PO SCH (20:32)
[2017-08-16] MEDS: ACETAMINOPHEN 325 MG TABLET PO PRN (20:46)
[2017-08-17] MEDS: PIPERACILLIN/TAZOBACTAM 3,375 MG in SODIUM CHLORIDE 0.9% 100 ML IV SCH ×2 (00:57→09:05)
[2017-08-17] MEDS: ALBUTEROL/IPRATROPIUM 3 ML NEB RESP TX SCH (07:24)
[2017-08-17] MEDS: DORNASE ALFA 2.5 MG/2.5 ML VIAL RESP TX SCH (07:24)
[2017-08-17 07:55] VITALS: BP 122/72
[2017-08-17] MEDS: methylPREDNISolone SOD SUC 40 MG/1 ML VIAL IV SCH (09:09)
[2017-08-17] MEDS: FERROUS SULFATE 325 MG TABLET PO SCH (09:09)
[2017-08-17] MEDS: METOPROLOL SUCCINATE XL 25 MG TABLET PO SCH (09:09)
[2017-08-17] MEDS: PANTOPRAZOLE 40 MG TABLET PO SCH (09:09)
[2017-08-17] MEDS: CETIRIZINE 10 MG TABLET PO SCH (09:09)
[2017-08-17] MEDS: TAMSULOSIN 0.4 MG CAPSULE PO SCH (09:09)
[2017-08-17] MEDS: ASPIRIN EC 81 MG TABLET PO SCH (09:09)
[2017-08-17] MEDS: DOCUSATE SODIUM 100 MG CAPSULE PO SCH (09:09)
[2017-08-17] MEDS: MULTIVITAMIN (CENTRUM) TABLET PO SCH (09:09)
[2017-08-17] MEDS: CHLORHEXIDINE 0.12% ORAL RINSE 60 ML BOTTLE SWISH/SPIT SCH (09:10)
[2017-08-17] MEDS: CHLORPHENIRAMINE PO SCH (09:10)
[2017-08-17] MEDS: FLUTICASONE 50 MCG NASAL SPRAY 16 GM BOTTLE BOTH NARES SCH (09:10)
[2017-08-17] MEDS: PHENYLEPHRINE PO SCH (09:10)
[2017-08-17] MEDS ORDERED: predniSONE 5 MG TABLET PO SCH (21:00)
[2017-08-18] MEDS ORDERED: LEVOFLOXACIN 500 MG TABLET PO SCH (09:00)
[2017-08-24] MEDS ORDERED: predniSONE 5 MG TABLET PO SCH (09:00)
== END 2017-08-17 10:50 | disposition home or self-care (01) | DRG 235 ==
LOC: N.5E 12:59 → N.CVR 08-08 07:43 → N.ICU 08-09 06:58 → N.TELES 08-10 11:32